=== PATIENT | male | born 1965 | race Caucasian/White ===

== ENCOUNTER 2022-05-26 15:14 | Inpatient (IN) | payer OTHER ==
[~2022-05-26] VITALS: Ht 172.7 cm; Wt 68.0 kg
[2022-05-26 15:24] VITALS: BP 94/61
[2022-05-26] MEDS ORDERED: NACL 0.9% 1,000 ML IV ONE ×2 (15:40→16:55)
[2022-05-26 16:02] LABS: BASOPHILS % (AUTO) 0.3 % (0.0-2.0); EOSINOPHILS % (AUTO) 0.2 % (0.0-4.0); HEMATOCRIT 24.3 % (36-52); HEMOGLOBIN 8.1 g/dL (12.0-18.0); LYMPHOCYTES # (AUTO) 0.9 K/uL (2.0-11.5); LYMPHOCYTES % (AUTO) 6.4 % (20.5-51.1); MEAN CORPUSCULAR HEMOGLOBIN 28 pg (27-31); MEAN CORPUSCULAR HGB CONC 33 g/dL (33-37); MEAN CORPUSCULAR VOLUME 85.6 fL (80-94); MONOCYTES # (AUTO) 0.9 K/uL (0.8-1.0); MONOCYTES % (AUTO) 5.9 % (1.7-9.3); NEUTROPHILS # (AUTO) 12.8 K/uL (1.8-7.7); NEUTROPHILS % (AUTO) 87.2 % (42.2-75.2); PLATELET COUNT (AUTO) 205 K/uL (140-450); RED BLOOD CELL COUNT(AUTO) 2.84 MIL/uL (4.20-6.10); RED CELL DISTRIBUTION WIDTH 15.7 % (11.6-13.7); WHITE BLOOD COUNT (AUTO) 14.6 K/uL (4.8-10.8)
[2022-05-26 16:42] LABS: ANION GAP 17.3 (8-16); CARBON DIOXIDE 24.6 mmol/L (21-32); POTASSIUM 4.9 mmol/L (3.5-5.1)
[2022-05-26 16:43] LABS: TOTAL BILIRUBIN 0.3 mg/dL (0.0-1.0)
[2022-05-26] MEDS ORDERED: cefTRIAXone 1,000 MG VIAL ONE (17:20)
[2022-05-26] MEDS ORDERED: ACETAMINOPHEN 650 MG SUPP RC ONE (17:30)
--- NOTE | 2022-05-26 17:33 | NUR ---
PT BIB ALS RUN FROM [facility] C/O HYPOTENSION. ON ARRIVAL PT TRACH TO T PIECE AT 6L SATURATION 96%. GCS 9. SKIN HOT TO TOUCH. GTUBE NOTED CLAMPED. BILATERAL NEPHROSTOMY TUBES. STACH ON MONITOR. IV INSERTED TO RIGHT HAND #[id number] MEDICATED PER ORDER
[2022-05-26] MEDS ORDERED: ATOR10TA PO (17:40)
[2022-05-26] MEDS ORDERED: KEP500L GT (17:40)
[2022-05-26] MEDS ORDERED: METF-1243 PO (17:40)
[2022-05-26] MEDS ORDERED: DOCU-299 PO (17:40)
[2022-05-26] MEDS ORDERED: LOSA100T51 PO (17:40)
[2022-05-26] MEDS ORDERED: CARV12.5 PO (17:40)
[2022-05-26] MEDS ORDERED: ASPI-1822 PO (17:40)
--- NOTE | 2022-05-26 18:24 | NUR ---
PT INCONTINENT OF STOOL CLEANED AND REPOSITIONED. PT TACHYPNEIC ON T PIECE 6L, RT CALLED TO [facility]
[2022-05-26] MEDS ORDERED: POTASSIUM CHLORIDE 10 MEQ TABER PO PRN (18:25)
[2022-05-26] MEDS ORDERED: HYDROcodone/APAP 5/325 MG 1 TAB TAB PO PRN (18:25)
[2022-05-26] MEDS ORDERED: ONDANSETRON 4 MG/2 ML VIAL IVP PRN (18:25)
[2022-05-26] MEDS ORDERED: ACETAMINOPHEN 325 MG TAB PO PRN (18:25)
[2022-05-26] MEDS ORDERED: NACL 0.9% 1,000 ML IV SCH (18:25)
[2022-05-26] MEDS ORDERED: MORPHINE SULFATE 4 MG/ML SYR IVP PRN (18:25)
[2022-05-26] MEDS ORDERED: KCL 20 MEQ/WATER INJ PREMIX 200 ML IV PRN (18:25)
--- NOTE | 2022-05-26 18:40 | NUR ---
PT NOTED TACHYPNEIC IN 40S, TACHYCARDIAC IN 140S, DIAPHORETIC. MULTIPLE MUCOUS PLUGS SUCTIONED BY RT. SATURATION READING IN 80S ON 12L, DR MAGANA AT BEDSIDE.
[2022-05-26] MEDS ORDERED: LORazepam 2 MG/ML VIAL IM/IVP STA (18:44)
[2022-05-26] MEDS ORDERED: LORazepam 2 MG/ML VIAL ONE (18:45)
[2022-05-26] MEDS ORDERED: AZITHROMYCIN 500 MG INJ VIAL IV ONE (18:59)
[2022-05-26] MEDS ORDERED: AZITHROMYCIN 500 MG in DEXTROSE 5% 250 ML IV SCH (19:00)
--- NOTE | 2022-05-26 19:01 | NUR ---
PT REMAINS TACHYPNEIC BRIGHT RED BLOOD FROM TRACH. BP DROPPING INTO 80S. RT PLACING PT ON VENT PER DR MAGANA. DR MAGANA AT BEDSIDE
--- NOTE | 2022-05-26 19:05 | NUR ---
CALLED TO BEDSIDE BY ED RN TO ASSES PT. PT WAS TACHYPNEIC AND TACHYCARDIC ON CA. SUCTIONED PT AND REMOVED LARGE AMOUNTS OF BLOODY MUCUS PLUGS. DR MAGANA AT BEDSIDE AND ORDERED AN ABG TO VERIFY SPO2 READING ON MONITOR. GAVE ABG RESULTS TO DR MAGANA AT BEDSIDE AND HE REQUESTED TO PLACE PT ON VENT SETTINGS AC R22 VT450 +5 100%. AIRWAY PATENT PT RECEIVING ADEQUATE VT ALARMS SET VENT PLUGGED INTO RED OUTLET. AMBUBAG AT BEDSIDE.
[2022-05-26] MEDS ORDERED: NOREPINEPHRINE 4 MG/4 ML VIAL IV ONE (19:10)
--- NOTE | 2022-05-26 19:10 | NUR ---
DR MAGANA AT BEDSIDE FOR CENTRAL LINE PLACEMENT
--- NOTE | 2022-05-26 19:15 | NUR ---
ASSUMED CARE OF PT AT THIS TIME. DR. MAGANA AT BEDSIDE DOING CENTRAL LINE AT THIS TIME. PT HAS TRACHYOSTOMY, ON VENTILATOR. WILL FOLLOW THROUGH WITH CURRENT ORDERS.
--- NOTE | 2022-05-26 19:16 | NUR ---
BEDSIDE REPORT GIVEN TO CARLEY LEVY
--- NOTE | 2022-05-26 19:30 | NUR ---
LEVOPHED STARTED AT THIS TIME, DR. MAGANA REQUEST TO START AT 8MCG/MIN. AWAITING ICU BED. WILL CONTINUE TO MONITOR.
--- NOTE | 2022-05-26 20:00 | NUR ---
PT CLEANED AT THIS TIME, LARGE SOFT STOOL NOTED. ALL LINEN CHANGED. PT IS IN RESPIRATORY DISTRESS, BUCKING THE VENT AND DIAPHORETIC. RESPIRATORY TO BEDSIDE FOR SUCTION. PT TOLERATING WELL, AND IMPROVEMENT NOTED WITH SUCTION.
[2022-05-26] MEDS ORDERED: NOREPINEPHRINE 4 MG in DEXTROSE 5% 250 ML IV PRN (20:35)
--- NOTE | 2022-05-26 21:50 | NUR ---
REPORT CALLED TO TRACIE LEVY IN ICU WITH FULL RETURNED VERBAL UNDERSTANDING. PT GOING TO ICU 7
[2022-05-26 22:00] VITALS: BP 112/79
--- NOTE | 2022-05-26 22:15 | NUR ---
ASSISTED IN TRANSFERRING THE PT WITH FELLOW RT WITH AMBU BAG. RECONNECTED TO VENTILATOR WITH NO COMPLICATIONS. PT IS STABLE. WILL CONTINUE TO MONITOR.
--- NOTE | 2022-05-26 23:44 | NUR ---
PHONE CALL TO PTS NOK,KENYON FOSS([phone]); NO ANSWER, LEFT MESSAGE TO CALL [employer] AGENT BACK FOR PTS HISTORY,VACCINATION RECORD
[2022-05-27] VITALS: BP 110/72
--- NOTE | 2022-05-27 00:12 | NUR ---
PATIENT TO ICU 2154 VERY LETHARGIC NON VERBAL HAS T-V RATE 22 TV 450 FI02 100% PEEP 5 SAT 99% TEMP 101.4 ON MONITOR SINUS TACH. LUNGS DIMINISH HAS RIGHT SUBCLAVIN PATIENT HAS RIGHT NEPHRECTOMY SCANT URINE OUT ON ADMISSION. PATIENT HAS G-TUBE CLAMPED.HAS LEVOPHED AT 11 MCG 20.6 ML. PATIENT HAS LEFT WRIST RESTRAINT ON PATIENT CANT MOVE RIGHT SIDE. ONLY LEFT. GIVEN TYLENOL 650 MG 2254 HAD TEMP 101.4. AT MID BRAULIO 100. NO SIGNS OF ACUTE DISTRESS. SKIN INTACT.
[2022-05-27 02:00] VITALS: BP 114/97
[2022-05-27] MEDS ORDERED: NOREPINEPHRINE 8 MG in DEXTROSE 5% 250 ML IV PRN (03:00)
[2022-05-27 04:00] VITALS: BP 122/74
[2022-05-27] MEDS ORDERED: CALCIUM CHLORIDE 10% 100 MG/ML SYR IVP ONE (05:44)
[2022-05-27] MEDS ORDERED: CODE BLUE PARTICIPANT 1 EA MISC MC ONE (05:44)
[2022-05-27] MEDS ORDERED: EPINEPHrine PFS 0.1 MG/ML SYR IVP ONE (05:44)
[2022-05-27] MEDS ORDERED: SODIUM BICARBONATE 8.4% PFS 50 MEQ/50 ML SYR IVP ONE (05:44)
[2022-05-27 05:51] LABS: BASOPHILS % (AUTO) 0.3 % (0.0-2.0); EOSINOPHILS % (AUTO) 0.1 % (0.0-4.0); HEMATOCRIT 20.7 % (36-52); LYMPHOCYTES # (AUTO) 1.4 K/uL (2.0-11.5); MEAN CORPUSCULAR HEMOGLOBIN 29 pg (27-31); MEAN CORPUSCULAR HGB CONC 33 g/dL (33-37); MEAN CORPUSCULAR VOLUME 86.7 fL (80-94); MONOCYTES # (AUTO) 0.7 K/uL (0.8-1.0); MONOCYTES % (AUTO) 4.4 % (1.7-9.3); NEUTROPHILS # (AUTO) 13.1 K/uL (1.8-7.7); NEUTROPHILS % (AUTO) 86.2 % (42.2-75.2); PLATELET COUNT (AUTO) 236 K/uL (140-450); RED BLOOD CELL COUNT(AUTO) 2.38 MIL/uL (4.20-6.10); RED CELL DISTRIBUTION WIDTH 15.9 % (11.6-13.7)
--- NOTE | 2022-05-27 06:00 | NUR ---
PHONE CALL TO PTS NOK, PERSON TO NOTIFY KENYON FOSS [phone] EMERSON LARSEN WHILE CODE BLUE WAS ONGOING.
--- NOTE | 2022-05-27 06:13 | NUR ---
PHONE CALL TO KENYON FOSS BY JYOTI WARE RN, NOTIFIED OF PTS .KENYON GAVE JYOTI LEVY PTS SISTERS PHONE NUMBER [phone] (GERARD BOOTHE).JYOTI LEVY SPOKE WITH GERARD, SHE WILL LET HER DAUGHTER COME TO ICU.GERARD ALSO SAID "SHE WILL BE HERE AROUND 10 AM" PER JYOTI LEVY
--- NOTE | 2022-05-27 06:33 | NUR ---
AT 0544 CALLED CODE BLUE PATIENT WENT SALMA THEN [id number] THEN STRAIGHT LINE.CPR STARED AT 0544. ACLS DRUGS STARTED. TO ROOM CALLED CODE AT 0602. MARKIE CALLED BACK [phone] [facility] RELEASE BODY NOT A MARKIE CASE.
[2022-05-27 06:37] LABS: ALBUMIN 1.6 g/dL (3.4-5.0); ANION GAP 14.7 (8-16); CARBON DIOXIDE 23.6 mmol/L (21-32); CREATININE 1.9 mg/dL (0.6-1.3); MAGNESIUM 2.2 mg/dL (1.8-2.4); POTASSIUM 5.3 mmol/L (3.5-5.1); TOTAL BILIRUBIN 0.2 mg/dL (0.0-1.0)
[2022-05-27 06:42] LABS: HEMOGLOBIN 6.8 g/dL (12.0-18.0)
[2022-05-27 06:43] LABS: WHITE BLOOD COUNT (AUTO) 15.2 K/uL (4.8-10.8)
--- NOTE | 2022-05-27 07:30 | NUR ---
ASSUMED CARE OF PT. PT CLEANED AND IN BODY BAG. FAMILY EXPECTED TO VISIT AND SELECT HOME AT 1000 TODAY.
--- NOTE | 2022-05-27 09:56 | NUR ---
[facility] CALLED REQUESTING TO TRANSFER PT TO [facility] FOR B[facility]IAL. HE THEN SELECTED [facility]. UPDATED ON PLAN.
--- NOTE | 2022-05-27 11:00 | NUR ---
CALLED [facility] TO SEE WHAT TIME THEY WILL BE VISITING THE PT BEFORE THE HOME PICKS UP THE BODY. HE SAID THEY ARE ON THEIR WAY.
--- NOTE | 2022-05-27 13:14 | NUR ---
FAMILY AND ROOMMATES AT BEDSIDE WITH GOWNS, GLOVES, AND MASKS FOR INFLUENZA PRECAUTION. UPDATED ON PLAN. CONFIRMED [facility]. FAMILY IS AWARE THEY CAN TRANSFER PT TO [place] VIA THE HOME IF THEY STILL WANT TO.
--- NOTE | 2022-05-27 13:23 | NUR ---
FAMILY REQUESTED AUTOPSY AND TO SPEAK TO OB TECH. CALLED SOCIAL WORK, WHO DID NOT ANSWER. CALLED MANAGER [employer] WHO STATED WE DO NOT HAVE OB TECH HERE TODAY AND TO CALL PUFF IRON OPERATOR. CALLED PUFF IRON OPERATOR MARIA DE JESUS WHO WILL VISIT AT BEDSIDE SHORTLY.
--- NOTE | 2022-05-27 14:35 | NUR ---
WIPING CLOTH CUTTER MARIA DE JESUS AND DR. PETERSON AT BEDSIDE TO UPDATE FAMILY. ALL QUESTIONED ANSWERED. FAMILY ADVISED TO CALL [facility] TO FOLLOW UP. Addendum: 05/27/22 at [facility] by Raisa Bashir RN BELONGINGS RELEASED TO FAMILY. PAPERWORK SIGNED.
--- NOTE | 2022-05-27 16:01 | NUR ---
at 0600 called [facility] they called me at 0605 gave them information about the patient. abhishek told me i could release body #[id number]. TALKED TO PARTNER OF PATIENT IN EQUATORIAL GUINEAN ABOUT THE JORDIN EDWARDS AND THAT HE WAS GOING TO CALL THE CODE. THE CHARGE NURSE GOT SOMEONE TO TALK TO FAMILY THIS A.M. SHE TOLD OCTOBER THAT THE FAMILY WOULD BE COMING HERE AT 10 A.M. 0200 THERE WAS NO CHANGE IN PATIENTS CONDITION SINCE PATIENT WAS ADMITTED AT 2155 TO ROOM ICU 7. PT V/S CHANGE AT 0500 HEART RATE 137 RESP. 38 SAT 98% THE VENTILATOR WAS ALARMING WENT TO CHECK PATIENT HAD TO BIG CLOTS IN TRACH AND SECRETIONS BLOODY. CALLED R.T TO COME AT 0530. PATIENT WAS IN 45 DEGREE POSITION WHEN JORDIN EDWARDS WAS CALLED AT 0544 THAT WHEN R.T CAME TO ROOM I SUCTION PATIENT BUTWAS NOT ABLE TO GET THE CLOTS THE WHERE LARGE AND R.T WAS AWARE. PATIENT CAME TO ICU WITH CLOTS IN TRACH. DESTINEY NOT AWARE OF WHAT CHARGE NURSE CALLED. WHEN PATIENT WAS ADMITTED.
--- NOTE | 2022-05-27 16:20 | NUR ---
[facility] TRANSP[facility] AT BEDSIDE TO SUPERVISOR STAVE CUTTING PT. PAPERWORK SIGNED.
--- NOTE | 2022-05-27 19:19 | NUR ---
LATE ENTRY- AT 18[address] RECEIVED [address]URN CALL FROM DR. WALL TRANSFERRED TO DR. MAGANA TO DISCUSS PT CHANGE IN CONDITION. DR. MAGANA INFORMED THIS RN THAT DR. WALL GAVE PERMISSION TO UPGRADE PT TO ICU STATUS. ORDER CARRIED OUT.
== END 2022-05-27 16:32 | DRG 720 ==
LOC: MED 15:14 → MTU 18:34 → MIC 21:45
PROVIDERS: ADMIT Hospitalist; ATTEND Hospitalist
PROC: 02HV33Z Insertion of Infusion Device into Superior Vena Cava, Percutaneous Approach (ICD-10-PCS; principal; 2022-05-26)
PROC: 5A1935Z Respiratory Ventilation, Less than 24 Consecutive Hours (ICD-10-PCS; 2022-05-26)
PROC: B548ZZA Ultrasonography of Superior Vena Cava, Guidance (ICD-10-PCS; 2022-05-26)
PROC: 5A12012 Performance of Cardiac Output, Single, Manual (ICD-10-PCS; 2022-05-27)
DX: A41.9 Sepsis, unspecified organism (principal); J96.21 Acute and chronic respiratory failure with hypoxia; R65.21 Severe sepsis with septic shock; I11.0 Hypertensive heart disease with heart failure; I50.40 Unspecified combined systolic (congestive) and diastolic (congestive) heart failure; Z93.0 Tracheostomy status; I25.5 Ischemic cardiomyopathy; F15.10 Other stimulant abuse, uncomplicated; Z20.822 Contact with and (suspected) exposure to COVID-19; Z79.82 Long term (current) use of aspirin; Z86.73 Personal history of transient ischemic attack (TIA), and cerebral infarction without residual deficits; Z79.899 Other long term (current) drug therapy
CPT/HCPCS: 36415; 36600; 71045; 80053; 82803; 83605; 83735; 85025; 87040; 87070; 87081; 87205; 89220; 92950; 93005; 94002; 94003; 96361; 96365; 99291; J0171; J0456; J0696; J2060; J2270; J3490; J7060; Q0092